=== PATIENT | male | born 1960 | race Caucasian/White ===

== ENCOUNTER 2018-02-26 12:09 | Outpatient (CLI) | payer MEDICARE, BC ==
--- NOTE | 2018-02-26 15:26 | Diagnostic Imaging Report ---
Indication: Cough Comparison: None 2 views of the chest obtained. Surgical clips noted in the abdomen. Heart size is normal. Interstitial densities are present within the lungs bilaterally nonspecific in nature. Bones are osteopenic. IMPRESSION: Prominent interstitial markings nonspecific in nature. Prior upper abdominal surgery
== END 2018-02-26 14:09 | disposition home or self-care (01) ==
LOC: RAD 12:09
DX: J20.8 Acute bronchitis due to other specified organisms (principal); M85.80 Other specified disorders of bone density and structure, unspecified site
CPT/HCPCS: 71046

== ENCOUNTER → 2018-08-25 | Outpatient (CLI) | payer MEDICARE, OTHER ==
--- NOTE | 2018-08-25 14:27 | Diagnostic Imaging Report ---
Indication: Cough Comparison: 02/26/2018 2 views of the chest obtained. Findings: Small hiatal hernia is present. Cardiomegaly is noted. The interstitium of the lungs appear mildly prominent. Surgical clips in the upper abdomen noted. Bones are unremarkable. IMPRESSION: Small hiatal hernia. No acute findings
== END | disposition home or self-care (01) ==
LOC: RAD 13:21
DX: R05 Cough (principal); K44.9 Diaphragmatic hernia without obstruction or gangrene
CPT/HCPCS: 71046